=== PATIENT | male | born 1955 | race African-American/Black ===

== ENCOUNTER 2018-08-10 17:57 | Emergency (ER) | payer BC ==
[~2018-08-10] VITALS: Ht 180.3 cm; Wt 85.7 kg
== END 2018-08-10 18:50 | disposition home or self-care (01) ==
LOC: ER 17:57
DX: S61.217A Laceration without foreign body of left little finger without damage to nail, initial encounter (principal); Z23 Encounter for immunization; W26.0XXA Contact with knife, initial encounter
CPT/HCPCS: 12001; 90471; 90714; 99282